=== PATIENT | female | born 1985 | race Caucasian/White ===

== ENCOUNTER 2023-11-28 16:01 | Outpatient (RCR) | payer BC, SELFPAY | END 2023-11-28 23:59 | disposition home or self-care (01) | LOC: RPT 16:01 | PROVIDERS: ATTENDING PHYSICIAN Obstetrics & Gynecology; PRIMARYCARE PHYSICIAN Nurse Practitioner Adult Health | DX: N94.10 Unspecified dyspareunia (principal); M62.89 Other specified disorders of muscle; Z73.6 Limitation of activities due to disability | CPT/HCPCS: 97014; 97110; 97112; 97140; 97530; 97535 ==

== ENCOUNTER 2024-01-03 16:03 | Outpatient (RCR) | payer BC, SELFPAY | END 2024-01-08 14:12 | disposition home or self-care (01) | LOC: RPT 16:03 | PROVIDERS: ATTENDING PHYSICIAN Obstetrics & Gynecology; PRIMARYCARE PHYSICIAN Nurse Practitioner Adult Health | DX: N94.10 Unspecified dyspareunia (principal); Z73.6 Limitation of activities due to disability | CPT/HCPCS: 97140; 97530 ==